=== PATIENT | female | born 1950 | race Caucasian/White ===

== ENCOUNTER 2022-02-16 04:57 | Day surgery (SDC) | payer OTHER ==
[2022-02-15 16:43] VITALS: BMI 28.3
[2022-02-16 11:46] VITALS: TEMP 97.6
[2022-02-16 12:23] VITALS: BP 114/68; PULSE 71; RESP 16
== END 2022-02-16 12:37 | disposition home or self-care (01) ==
LOC: JASU-ENDO 04:57
PROVIDERS: ATTEND Student in an Organized Health Care Education/Training Program
PROC: 0DB68ZX Excision of Stomach, Via Natural or Artificial Opening Endoscopic, Diagnostic (ICD-10-PCS; 2022-02-16)
PROC: 0DB58ZX Excision of Esophagus, Via Natural or Artificial Opening Endoscopic, Diagnostic (ICD-10-PCS; principal; 2022-02-16 09:30)
DX: K29.50 Unspecified chronic gastritis without bleeding (principal); K20.90 Esophagitis, unspecified without bleeding; K44.9 Diaphragmatic hernia without obstruction or gangrene; R13.10 Dysphagia, unspecified; R12 Heartburn
CPT/HCPCS: 88305-TC; 88342-TC

== ENCOUNTER 2023-10-22 14:13 | Emergency (ER) | payer MEDICARE, OTHER ==
[2023-10-22 14:26] VITALS: BP 128/75; PULSE 79; RESP 20; TEMP 98.4; BMI 31.3
[2023-10-22 15:47] LABS: BASO % 0.5 % (0-2.0); EOS % 1.8 % (0-4.5); HEMATOCRIT 38.4 % (32.4-45.2); HEMOGLOBIN 12.8 GM/dL (10.7-15.3); LYMPH % 40.8 % (8-40); MCHC 33.3 g/dl (32.0-36.0); MEAN CELL VOLUME 90.3 fl (80-96); MEAN PLT VOLUME 6.8 fl (7.5-11.1); MONO % 9.4 % (3.8-10.2); NEUT % 47.5 % (42.8-82.8); PLATELET COUNT 245 10^3/uL (134-434); RBC 4.25 M/mm3 (3.60-5.2); RDW 14.6 % (11.6-15.6); WHITE BLOOD COUNT 7.8 K/mm3 (4.0-10.0)
[2023-10-22 16:03] LABS: ACTIVATED PTT 29.3 SECONDS (25.2-36.5)
[2023-10-22 16:06] LABS: INR 1.12 (0.83-1.09); PROTHROMBIN TIME (PATIENT) 12.6 SEC (9.7-13.0)
[2023-10-22] MEDS ORDERED: MAG HYDROX/AL HYDROX/SIMETH 30 ML UNIT-DOSE CUP ONE (16:10)
[2023-10-22] MEDS: ACETAMINOPHEN 1000 MG/100 ML BAG IVPB ONE (16:10)
[2023-10-22] MEDS ORDERED: ACETAMINOPHEN INJECTION 100 ML ONE (16:10)
[2023-10-22] MEDS: MAG HYDROX/AL HYDROX/SIMETH 30 ML UNIT-DOSE CUP PO ONE (16:10)
[2023-10-22] MEDS ORDERED: FAMOTIDINE 20 MG/50 ML IVPB 20 MG/50 ML MG IVPB ONE (16:10)
[2023-10-22] MEDS: FAMOTIDINE 20 MG/50 ML IVPB 20 MG/50 ML MG IVPB ONE (16:11)
[2023-10-22 16:28] LABS: POTASSIUM 4.4 mmol/L (3.5-5.1)
[2023-10-22 16:30] LABS: CALCIUM 9.8 mg/dL (8.5-10.1)
[2023-10-22 16:31] LABS: ALBUMIN 3.9 g/dl (3.4-5.0); BLOOD UREA NITROGEN 16.8 mg/dL (7-18)
[2023-10-22 16:34] LABS: CREATININE 0.8 mg/dL (0.55-1.3)
[2023-10-22 16:35] LABS: BILIRUBIN,TOTAL 0.6 mg/dL (0.2-1); TOT PROT 7.6 g/dl (6.4-8.2)
[2023-10-22 17:31] LABS: EPI CELLS 4 /uL (0-25.1); HYALINE CASTS 0 /uL (0-3.1); URINE APPEARANCE CLEAR; URINE BACTERIA 33 /uL (0-1359); URINE BILIRUBIN NEGATIVE (NEGATIVE); URINE COLOR YELLOW; URINE GLUCOSE (UA) NEGATIVE (NEGATIVE); URINE KETONE NEGATIVE (NEGATIVE); URINE LEUK ESTERASE NEGATIVE (NEGATIVE); URINE NITRITE NEGATIVE (NEGATIVE); URINE PROTEIN NEGATIVE (NEGATIVE); URINE RBC 87 /uL (0-23.9); URINE UROBILINOGEN 0.2 mg/dL (0.2-1.0); URINE WBC 5 /uL (0-25.8)
== END 2023-10-22 18:32 | disposition home or self-care (01) ==
LOC: JER 14:13
PROC: 3E033GC Introduction of Other Therapeutic Substance into Peripheral Vein, Percutaneous Approach (ICD-10-PCS; principal; 2023-10-22)
PROC: 3E033NZ Introduction of Analgesics, Hypnotics, Sedatives into Peripheral Vein, Percutaneous Approach (ICD-10-PCS; 2023-10-22)
DX: R10.11 Right upper quadrant pain (principal); K29.70 Gastritis, unspecified, without bleeding
CPT/HCPCS: 36415; 71045-TC-FY; 74177-TC; 80053; 81003; 83690; 84484; 85025; 85610; 85730; 87086; 93005; 93010; 96365; 96375; 99285-25; J0131; Q9967